=== PATIENT | male | born 1980 | race Caucasian/White ===

== ENCOUNTER 2019-03-23 18:41 | Emergency (ER) | payer SELFPAY ==
--- NOTE | 2019-03-23 18:46 | Emergency Department Report ---
Blank Doc - Documentation Documentation: This is a 38-year-old male that presents with right facial swelling and pain. This initial assessment/diagnostic orders/clinical plan/treatment(s) is/are subject to change based on patient's health status, clinical progression and re- assessment by fellow clinical providers in the ED. Further treatment and workup at subsequent clinical providers discretion. Patient/guardians urged not to elope from the ED as their condition may be serious if not clinically assessed and managed. Initial orders include: 1- Patient sent to [facility] for further evaluation and treatment 2- labs
[2019-03-23 19:11] LABS: Basophils # (Auto) 0.1 K/mm3 (0.0-0.1); Basophils % (Auto) 0.7 % (0.0-1.8); Eosinophils # (Auto) 0.1 K/mm3 (0.0-0.4); Eosinophils % (Auto) 0.9 % (0.0-4.3); Hematocrit 44.8 % (35.5-45.6); Hemoglobin 14.7 gm/dl (11.8-15.2); Lymphocytes # (Auto) 1.6 K/mm3 (1.2-5.4); Lymphocytes % (Auto) 17.4 % (13.4-35.0); Mean Corpuscular HGB Conc 33 % (32-34); Mean Corpuscular Volume 81 fl (84-94); Monocytes % (Auto) 10.2 % (0.0-7.3); Platelet Count 317 K/mm3 (140-440); Red Blood Count 5.52 M/mm3 (3.65-5.03); Red Cell Distribution Width 14.3 % (13.2-15.2)
[2019-03-23 19:23] LABS: BUN/Creatinine Ratio 10; Blood Urea Nitrogen 9 mg/dL (9-20); Calcium 9.4 mg/dL (8.4-10.2); Hemolysis Index 37
[2019-03-23] MEDS ORDERED: DECADRON IV ONE (20:48)
[2019-03-23] MEDS ORDERED: MOTRIN PO ONE (20:48)
[2019-03-23] MEDS ORDERED: CLEOCIN 900 MG/50 mL 900 MG/50 ML BAG IV ONE (20:48)
[2019-03-23] MEDS ORDERED: IBUPROFEN PO ONE (21:42)
[2019-03-23] MEDS ORDERED: IBUPROFEN ONE (21:46)
--- NOTE | 2019-03-23 22:11 | Cat Scan Report ---
CT MAXILLOFACIAL WITHOUT CONTRAST INDICATION / CLINICAL INFORMATION: abscess. TECHNIQUE: All CT scans at this location are performed using CT dose reduction for ALARA by means of automated e xposure control. COMPARISON: None available. FINDINGS: SOFT TISSUE FACE: Infiltrative changes are seen in the upper lip and cheek. Findings are consistent w ith cellulitis. Infiltrative changes surround down into the region of the suprahyoid neck on the righ t. Reactive adenopathy is noted. I do not identify a discrete abscess on this noncontrast study. Ther e is a periapical lucency at tooth #4 which could represent a periapical abscess. A large dental jackie es seen in tooth #4 The infectious process involving the right cheek may be odontogenic in etiology. FACIAL BONES: No fracture or other significant abnormality. PARANASAL SINUSES: Inflammatory changes are present at the base of the right maxillary sinus. Paranas al sinuses otherwise appear clear. NASAL CAVITY:No abnormality. ORBITS: No significant abnormality. VISUALIZED INTRACRANIAL STRUCTURES: No significant abnormality. ADDITIONAL FINDINGS: None. IMPRESSION: 1. Right-sided facial cellulitis likely of odontogenic origin. 2. While no definite evidence of abscess is observed on this noncontrast study, the administration of this contrast would increase sensitivity in the detection of abscess in this setting. Signer Name: Luke Rhoades MD Signed: 03/23/2019 10:06 PM Workstation Name: [id number]
--- NOTE | 2019-03-23 22:18 | Emergency Department Report ---
ED ENT HPI - General Chief complaint: Dental/Oral Stated complaint: RT SIDE FACE SWELLING/PAIN Time Seen by Provider: 03/23/19 18:45 Source: patient Mode of arrival: Ambulatory Limitations: No Limitations - History of Present Illness Initial comments: Patient is a 38-year-old male who presents for dental pain right upper #2 minimal swelling no full will abscess no fever or chills. pt is toleratig po without difficulty, complaint: tooth pain Onset/Timin -: Last night Location: tooth # Severity: moderate Severity scale (0 -10): 4 Quality: aching Consistency: constant Improves with: none Worsens with: none Context- Dental: history of dental caries, poor dental care, tooth knocked out Associated Symptoms: toothache - Related Data Previous Rx's Medication Instructions Recorded Last Taken Type Chlorhexidine Mouthwash [Peridex] 15 ml MM BID #1 bottle 03/23/19 Unknown Rx Clindamycin [Clindamycin CAP] 300 mg PO Q8H 10 Days #30 cap 03/23/19 Unknown Rx traMADol [Ultram] 50 mg PO Q4H 12 Days #12 tablet 03/23/19 Unknown Rx Allergies Allergy/AdvReac Type Severity Reaction Status Date / Time No Known Allergies Allergy Unverified 03/23/19 18:44 ED Dental HPI - General Chief complaint: Dental/Oral Stated complaint: RT SIDE FACE SWELLING/PAIN Time Seen by Provider: 03/23/19 18:45 Source: patient Mode of arrival: Ambulatory Limitations: No Limitations - History of Present Illness complaint: tooth pain, ear pain, difficulty swallowing, other Onset/Timin -: week(s) Severity: moderate Quality: stabbing Consistency: constant Improves with: none Worsens with: chewing, hot/cold liquids Context- Dental: history of dental caries, poor dental care Dental Associated Symptons: Yes: Sore Throat, Fever - Related Data Previous Rx's Medication Instructions Recorded Last Taken Type Chlorhexidine Mouthwash [Peridex] 15 ml MM BID #1 bottle 03/23/19 Unknown Rx Clindamycin [Clindamycin CAP] 300 mg PO Q8H 10 Days #30 cap 03/23/19 Unknown Rx traMADol [Ultram] 50 mg PO Q4H 12 Days #12 tablet 03/23/19 Unknown Rx Allergies Allergy/AdvReac Type Severity Reaction Status Date / Time No Known Allergies Allergy Unverified 03/23/19 18:44 ED Review of Systems ROS: Stated complaint: RT SIDE FACE SWELLING/PAIN Other details as noted in HPI Constitutional: denies: chills, fever Eyes: denies: eye pain, eye discharge, vision change ENT: dental pain Respiratory: denies: cough, shortness of breath, wheezing Cardiovascular: denies: chest pain, palpitations Endocrine: no symptoms reported Gastrointestinal: denies: abdominal pain, nausea, diarrhea Genitourinary: denies: urgency, dysuria Musculoskeletal: denies: back pain, joint swelling, arthralgia Skin: denies: rash, lesions Neurological: denies: headache, weakness, paresthesias Psychiatric: denies: anxiety, depression Hematological/Lymphatic: denies: easy bleeding, easy bruising ED Past Medical Hx - Past Medical History Previous Medical History?: No - Surgical History Past Surgical History?: Yes Additional Surgical History: Adenoidectomy. deviated septum. tubes in ears - Social History Smoking Status: Current Every Day Smoker Substance Use Type: Alcohol - Medications Home Medications: Home Medications Medication Instructions Recorded Confirmed Last Taken Type Chlorhexidine Mouthwash [Peridex] 15 ml MM BID #1 bottle 03/23/19 Unknown Rx Clindamycin [Clindamycin CAP] 300 mg PO Q8H 10 Days #30 cap 03/23/19 Unknown Rx traMADol [Ultram] 50 mg PO Q4H 12 Days #12 tablet 03/23/19 Unknown Rx ED Physical Exam - General Limitations: No Limitations General appearance: alert, in no apparent distress - Head Head exam: Present: atraumatic, normocephalic, normal inspection - Eye Eye exam: Present: normal appearance, PERRL, EOMI. Absent: conjunctival injection, periorbital swelling, periorbital tenderness Pupils: Present: normal accommodation - ENT ENT exam: Present: mucous membranes moist, TM's normal bilaterally, normal external ear exam - Neck Neck exam: Present: normal inspection, full ROM. Absent: tenderness, meningismus, lymphadenopathy, thyromegaly - Respiratory Respiratory exam: Present: normal lung sounds bilaterally. Absent: respiratory distress, wheezes, stridor, chest wall tenderness - Cardiovascular Cardiovascular Exam: Present: regular rate, normal rhythm, normal heart sounds. Absent: systolic murmur, diastolic murmur, rubs, gallop - GI/Abdominal GI/Abdominal exam: Present: soft, distended, tenderness, normal bowel sounds. Absent: bruit, hernia - Rectal Rectal exam: Present: deferred - Extremities Exam Extremities exam: Present: normal inspection, full ROM, normal capillary refill. Absent: tenderness, joint swelling, calf tenderness - Back Exam Back exam: Present: normal inspection, tenderness. Absent: CVA tenderness (R), CVA tenderness (L), muscle spasm, paraspinal tenderness, rash noted - Neurological Exam Neurological exam: Present: alert, oriented X3, CN II-XII intact, normal gait, reflexes normal. Absent: motor sensory deficit - Psychiatric Psychiatric exam: Present: normal affect, normal mood - Skin Skin exam: Present: warm, dry, intact, normal color. Absent: rash ED Course Vital Signs 03/23/19 18:45 Temperature 98.8 F Pulse Rate 101 H Respiratory 15 Rate Blood Pressure 109/84 [Left] O2 Sat by Pulse 95 Oximetry ED Medical Decision Making - Lab Data Result diagrams: 03/23/19 18:59 03/23/19 18:59 Labs 03/23/19 03/23/19 18:59 18:59 WBC 9.3 RBC 5.52 H Hgb 14.7 Hct 44.8 MCV 81 L MCH 27 L MCHC 33 RDW 14.3 Plt Count 317 Lymph % (Auto) 17.4 Cherry % (Auto) 10.2 H Eos % (Auto) 0.9 Baso % (Auto) 0.7 Lymph # 1.6 Cherry # 1.0 H Eos # 0.1 Baso # 0.1 Seg Neutrophils % 70.8 H Seg Neutrophils # 6.6 Sodium 136 L Potassium 4.2 Chloride 97.4 L Carbon Dioxide 28 Anion Gap 15 BUN 9 Creatinine 0.9 Estimated GFR > 60 BUN/Creatinine Ratio 10 Glucose 137 H Calcium 9.4 - Radiology Data Radiology results: report reviewed, image reviewed CT MAXILLOFACIAL WITHOUT CONTRAST INDICATION / CLINICAL INFORMATION: abscess. TECHNIQUE: All CT scans at this location are performed using CT dose reduction for ALARA by means of automated exposure control. COMPARISON: None available. FINDINGS: SOFT TISSUE FACE: Infiltrative changes are seen in the upper lip and cheek. Findings are consistent with cellulitis. Infiltrative changes surround down into the region of the suprahyoid neck on the right. Reactive adenopathy is noted. I do not identify a discrete abscess on this noncontrast study. There is a periapical lucency at tooth #4 which could represent a periapical abscess. A large dental caries seen in tooth #4 The infectious process involving the right cheek may be odontogenic in etiology. FACIAL BONES: No fracture or other significant abnormality. PARANASAL SINUSES: Inflammatory changes are present at the base of the right maxillary sinus. Paranasal sinuses otherwise appear clear. NASAL CAVITY:No abnormality. ORBITS: No significant abnormality. VISUALIZED INTRACRANIAL STRUCTURES: No significant abnormality. ADDITIONAL FINDINGS: None. IMPRESSION: 1. Right-sided facial cellulitis likely of odontogenic origin. 2. While no definite evidence of abscess is observed on this noncontrast study, the administration of this contrast would increase sensitivity in the detection of abscess in this setting. Signer Name: Luke Rhoades MD Signed: 03/23/2019 10:06 PM Workstation Name: [id number] Transcribed By: Dictated By: Luke Rhoades MD Electronically Authenticated By: Luke Rhoades MD Signed Date/Time: 03/23/192205 DD/ 56 TD/TT: - Medical Decision Making ct right sided facial cellullitis, plan continue clindamicin, , peridex, ultram follow up with dentist in 2-3 days , pt verbalized agreement and understanding of discharge plan will follow up with dentist in 2-3 days . given rx as cecy. Critical care attestation.: If time is entered above; I have spent that time in minutes in the direct care of this critically ill patient, excluding procedure time. ED Disposition Clinical Impression: Dental abscess, Facial cellulitis Disposition: - TO HOME OR SELFCARE Is pt being admited?: No Does the pt Need Aspirin: No Condition: Stable Instructions: Dental Abscess (ED) Prescriptions: Clindamycin [Clindamycin CAP] 300 mg PO Q8H 10 Days #30 cap Chlorhexidine Mouthwash [Peridex] 15 ml MM BID #1 bottle traMADol [Ultram] 50 mg PO Q4H 12 Days #12 tablet Referrals: PRIMARY CARE, [Primary Care Provider] - 3-5 Days Forms: Work/School Release Form(ED) Time of Disposition: 22:58
[2019-03-23 23:10] VITALS: BP 113/68
== END 2019-03-23 23:09 | disposition home or self-care (01) ==
LOC: ED 18:41
DX: K04.7 Periapical abscess without sinus (principal); L03.211 Cellulitis of face; F17.200 Nicotine dependence, unspecified, uncomplicated
CPT/HCPCS: 36415; 70486; 80048; 85025; 96365; 96375; 99284; J1100